=== PATIENT | female | born 1930 ===

== ENCOUNTER 2018-04-13 07:42 | Day surgery (SDC) | payer MEDICARE, OTHER ==
[2018-04-13 08:06] VITALS: BP 130/77; PULSE 65; RESP 20; TEMP 97.6; O2SAT 99
== END 2018-04-13 09:44 | disposition home or self-care (01) ==
LOC: C.SDS 07:42
PROVIDERS: ATTEND Obstetrics & Gynecology
DX: Z53.9 Procedure and treatment not carried out, unspecified reason (principal); N95.0 Postmenopausal bleeding; N85.00 Endometrial hyperplasia, unspecified